=== PATIENT | female | born 1955 | race Caucasian/White ===

== ENCOUNTER 2020-10-05 10:54 | Emergency (ER) | payer OTHER ==
[2020-10-05] MEDS ORDERED: PERCOCET 5-3251 EACH PO (12:43)
[2020-10-05] MEDS ORDERED: PERCOCET 5/325 T1 EA PO ×2 (12:55→13:13)
[2021-03-09] MEDS ORDERED: GLUCOPHAGE XR500 M1 PO (08:13)
[2021-03-09] MEDS ORDERED: NOVOLOG FL100 UNIT/1 SQ (08:15)
[2021-03-09] MEDS ORDERED: LOVASTATIN40 MG PO (08:15)
[2021-03-09] MEDS ORDERED: PAXIL40 MG PO (08:15)
== END 2020-10-05 13:50 | disposition home or self-care (01) ==
LOC: ER1 10:54
DX: S32.018A Other fracture of first lumbar vertebra, initial encounter for closed fracture (principal); E11.9 Type 2 diabetes mellitus without complications; W07.XXXA Fall from chair, initial encounter; Y92.002 Bathroom of unspecified non-institutional (private) residence as the place of occurrence of the external cause
CPT/HCPCS: 72131; 96372; 99284; J2270; J2550

== ENCOUNTER → 2020-10-10 | Outpatient (CLI) | payer OTHER ==
[~2020-10-10] MED LIST: GLUCOPHAGE XR500 M1 PO; LOVASTATIN40 MG PO; NOVOLOG FL100 UNIT/1 SQ; PAXIL40 MG PO; PERCOCET 5-3251 EACH PO; PERCOCET 5/325 T1 EA PO
== END ==
LOC: SLEEP 10:29
DX: G47.33 Obstructive sleep apnea (adult) (pediatric) (principal)
CPT/HCPCS: 95810

== ENCOUNTER → 2021-03-09 | Day surgery (SDC) | payer OTHER ==
[2021-03-09 07:31] LABS: BUN/CREATININE RATIO 18 (0-10)
== END | disposition home or self-care (01) ==
LOC: OR 06:37
PROVIDERS: Orthopaedic Surgery
DX: G56.02 Carpal tunnel syndrome, left upper limb (principal); Z20.822 Contact with and (suspected) exposure to COVID-19; E78.5 Hyperlipidemia, unspecified; E11.9 Type 2 diabetes mellitus without complications; K21.9 Gastro-esophageal reflux disease without esophagitis
CPT/HCPCS: 36415; 80048; 82962; 93005; J0690; J1100; J2001; J2250; J2405; J2704; J3010; J7120; U0002

== ENCOUNTER → 2022-01-11 | Outpatient (CLI) | payer OTHER | LOC: EXRD 09:31 | DX: K76.0 Fatty (change of) liver, not elsewhere classified (principal) | CPT/HCPCS: 76705 ==

== ENCOUNTER → 2022-02-01 | Outpatient (CLI) | payer OTHER | LOC: KOH-I 10:39 | DX: M79.641 Pain in right hand (principal); M79.642 Pain in left hand | CPT/HCPCS: 73110; 73130 ==